=== PATIENT | male | born 2005 | race African-American/Black ===

== ENCOUNTER 2024-05-30 19:05 | Emergency (ER) | payer SELFPAY | END 2024-05-30 19:40 | disposition home or self-care (01) | LOC: ERS 19:05 | DX: S00.81XA Abrasion of other part of head, initial encounter (principal); S40.211A Abrasion of right shoulder, initial encounter; S60.811A Abrasion of right wrist, initial encounter; F10.120 Alcohol abuse with intoxication, uncomplicated | CPT/HCPCS: 99283 ==